=== PATIENT | female | born 1960 ===

== ENCOUNTER 2018-09-29 09:38 | Day surgery (SDC) | payer OTHER ==
[~2018-09-29] VITALS: Ht 162.6 cm; Wt 101.4 kg
[~2018-09-29 09:38] MED LIST: ATOR20 PO; GABA300 PO; LOSARTAN-HCTZ1 EACH PO; NAPR500 PO; Prozac20 MG PO; VITAMIN D32000 UNIT PO
--- NOTE | 2018-09-29 10:25 | NUR ---
09/29/18 1025 Consuelo Vallecillo SIMETHICONE USED DURING PROCEDURE.
--- NOTE | 2018-09-29 11:45 | NUR ---
09/29/18 1144 Consuelo Vallecillo PT STS 10/10 LEFT SHOULDER PAIN UPON AWAKENING POST-PROCEDURE. PT STS SHE ONLY TAKES IBUPROFEN FOR PAIN CONTROL AT HOME. PT WRITHING IN BED, MOANING, SWAYING FROM SIDE TO SIDE ON GURNEY. PT FAMILY AT BEDSIDE; PT TALKING CALMLY WITH FAMILY, NO TEARS OR GRIMACE ON FACE. FLACC SCALE OF 3. DR. SCHMITT TO ROOM TO CONSULT POST PROCEDURE REGARDING POSSIBLE EARNEST DIAGNOSIS. DR. SCHMITT PRESCRIBED 1 TAB HYDROCODONE/ACETAMINOPHEN 5/325 PO NOW. PT STATES SHE IS VERY THANKFUL, SMILING, AND STILL IN BED. FLACC SCALE OF [address] SCHMITT TOLD PT ABOUT PAIN MEDICATION TO BE ADMINISTERED.
== END 2018-09-29 11:45 | disposition home or self-care (01) ==
LOC: ORSCSDS 09:38
PROVIDERS: Surgery
PROC: 0DBP8ZX Excision of Rectum, Via Natural or Artificial Opening Endoscopic, Diagnostic (ICD-10-PCS; principal; 2018-09-29 09:30)
PROC: 0DBN8ZX Excision of Sigmoid Colon, Via Natural or Artificial Opening Endoscopic, Diagnostic (ICD-10-PCS; principal; 2018-09-29 09:30)
DX: Z12.11 Encounter for screening for malignant neoplasm of colon (principal); Z80.0 Family history of malignant neoplasm of digestive organs; K63.5 Polyp of colon; D12.8 Benign neoplasm of rectum; K64.8 Other hemorrhoids; E11.9 Type 2 diabetes mellitus without complications; I10 Essential (primary) hypertension; J44.9 Chronic obstructive pulmonary disease, unspecified; F17.210 Nicotine dependence, cigarettes, uncomplicated; E66.01 Morbid (severe) obesity due to excess calories; Z68.38 Body mass index [BMI] 38.0-38.9, adult; Z79.899 Other long term (current) drug therapy
CPT/HCPCS: 82947; 88305; A9270-GY; J2405; J2704; J7120

== ENCOUNTER 2019-05-21 16:19 | Emergency (ER) | payer OTHER ==
[~2019-05-21] VITALS: Ht 157.5 cm; Wt 90.7 kg
[2019-05-21] MEDS ORDERED: Norco 5-325 Ta1 EACH PO (16:35)
[2019-05-21] MEDS ORDERED: Zovirax800 MG PO (16:35)
== END 2019-05-21 16:41 | disposition home or self-care (01) ==
LOC: ER 16:19
DX: B02.9 Zoster without complications (principal); Z88.8 Allergy status to other drugs, medicaments and biological substances; I10 Essential (primary) hypertension; E78.00 Pure hypercholesterolemia, unspecified; Z88.5 Allergy status to narcotic agent; Z79.899 Other long term (current) drug therapy; Z87.891 Personal history of nicotine dependence
CPT/HCPCS: 99282